=== PATIENT | female | born 1950 | race Caucasian/White ===

== ENCOUNTER 2019-04-18 23:49 | Emergency (ER) | payer OTHER ==
[2019-04-19 00:01] VITALS: BP 153/80; PULSE 73; TEMP 98.4; BMI 24.7
--- NOTE | 2019-04-19 00:25 | PDOC ---
History of Present Illness - General Chief Complaint: Irregular Heart Beat Stated Complaint: ARRYTHMIA Time Seen by Provider: 04/19/19 00:18 History Source: Patient Exam Limitations: No Limitations - History of Present Illness Initial Comments: 04/19/19 00:22 This is a 68-year-old female who comes in complaining of an arrhythmia. Patient said that she has had a viral upper respiratory tract type illness and has not been feeling that well for a few days. Patient said that this morning it felt like she was having extra beats. Patient denied any associated chest pain, nausea, vomiting, diarrhea, shortness of breath, abdominal pain or any other associated symptoms. Patient does appear to be a little anxious. Patient denies history of flulike symptoms in the past. Patient said it is different than her A. fib that she has had in the past. Allergies: as per nursing notes Past Medical History: none Social history: Lives with family. No smoking. No alcohol. No illicit drugs. Surgical history: None General: No fevers or chills, no weakness, no weight loss HEENT: No change in vision. No sore throat,. No ear pain CardioVascular: no chest discomfort. No shortness of breath Respiratory:No cough, or wheezing. Gastrointestinal: no nausea, vomiting, diarrhea or constipation, No rectal bleeding Genitourinary: No dysuria, hematuria, or frequency Musculoskeletal: No joint or muscle pain or swelling Neurologic: No headache, vertigo, dizziness or loss of consciousness Psychiatric: nor depression Skin: No rashes or easy bruising Endocrine: no increased thirst or abnormal weight change Allergic: no skin or latex allergy All other systems reviewed and normal Exam: General: Well-nourished well-developed individual, no acute distress HEENT: Throat: Normal, tonsils normal, no erythema or exudate Neck: Supple, no meningeal signs, no lymphadenopathy Eyes::Pupils equal reactive and round, extraocular motion intact Chest: Nontender to palpation Cardiac: S1-S2 normal, regular rate and rhythm, no murmurs rubs or gallops Respiratory: Lungs clear to auscultation bilateral Abdomen: Soft, nondistended, normal bowel sounds, there is no tenderness on palpation diffusely Extremities: Warm, dry, no cyanosis, clubbing, or edema Skin: No rashes Neuro: Alert and oriented x3, CN II - XII intact, nonfocal exam with normal strength, normal sensation, normal reflexes, normal gait, Psych: Normal mood and affect EKG shows normal sinus rhythm with a rate of [address]-T wave changes there is an occasional premature atrial complex. Patient most likely is feeling that premature atrial complexes as her skipped/extra beat. Patient discharged we will follow-up with her primary care doctor. Past History - Past Medical History Allergies/Adverse Reactions: Allergies Allergy/AdvReac Type Severity Reaction Status Date / Time No Known Allergies Allergy Unverified 07/10/12 22:07 Home Medications: Ambulatory Orders Levothyroxine [Synthroid] 0.88 mcg PO DAILY 07/10/12 Metoprolol Tartrate 25 mg PO DAILY 04/18/19 Simvastatin 20 mg PO DAILY 04/18/19 Warfarin Sodium [Coumadin] 5 mg PO DAILY 04/18/19 Cardiac Disorders: Yes (mitral regurgitation, AFIB) COPD: No Thyroid Disease: Yes Other medical history: ANKYLOSING SPONDYLITIS - Psycho Social/Smoking Cessation Hx Smoking Status: No Smoking History: Never smoked Number of Cigarettes Smoked Daily: 0 Hx Alcohol Use: Yes Substance Use Type: Alcohol *Physical Exam - Vital Signs Last Vital Signs Temp Pulse Resp BP Pulse Ox 98.4 F 73 16 153/80 99 04/18/19 23:55 04/18/19 23:55 04/18/19 23:55 04/18/19 23:55 04/18/19 23:55 Discharge - Discharge Information Problems reviewed: Yes Clinical Impression/Diagnosis: Palpitations Condition: Stable Disposition: HOME - Admission No - Follow up/Referral Referrals: Robbie Etienne [Primary Care Provider] - - Patient Discharge Instructions Additional Instructions: Return to the emergency department immediately with ANY new, persistent or worsening symptoms. Continue any medications as previously prescribed by your physician. You should follow up with your primary doctor as soon as possible regarding today's emergency department visit. . Please make sure your doctor reviews the results of your emergency evaluation. Thank you for coming to the Emergency Department today for your care. It was a pleasure to see you today. Please note that your evaluation is INCOMPLETE until you follow-up with your doctor. - Post Discharge Activity
--- NOTE | 2019-04-22 11:03 | EKG ---
Test Reason : Blood Pressure : / mmHG Vent. Rate : 065 BPM Atrial Rate : 065 BPM P-R Int : 206 ms QRS Dur : 086 ms QT Int : 418 ms P-R-T Axes : 046 -35 041 degrees QTc Int : 434 ms SINUS RHYTHM WITH PREMATURE ATRIAL COMPLEXES LEFT AXIS DEVIATION ABNORMAL ECG NO PREVIOUS ECGS AVAILABLE Confirmed by Chris Hahn MD ([id number]) on 04/22/2019 11:02:38 AM Referred By: MD SIERRA Confirmed By:Chris Hahn MD
== END 2019-04-19 00:28 | disposition home or self-care (01) ==
LOC: SUPCPDRO 23:49 → FER 23:49
DX: R00.2 Palpitations (principal); I48.91 Unspecified atrial fibrillation; I34.0 Nonrheumatic mitral (valve) insufficiency; E07.9 Disorder of thyroid, unspecified; M45.9 Ankylosing spondylitis of unspecified sites in spine
CPT/HCPCS: 93005; 99283-25

== ENCOUNTER 2020-01-17 01:11 | Emergency (ER) | payer OTHER ==
[2020-01-17 01:24] VITALS: BP 140/90; PULSE 95; TEMP 98.9; BMI 24.7
[2020-01-17] MEDS ORDERED: SODIUM CHLORIDE 500 ML IV STA (01:53)
[2020-01-17 02:42] LABS: BASO % 0.2 % (0-2.0); EOS % 1.7 % (0-4.5); HEMATOCRIT 37.8 % (32.4-45.2); HEMOGLOBIN 12.7 GM/dL (10.7-15.3); LYMPH % 46.2 % (8-40); MCH 31.3 pg (25.7-33.7); MCHC 33.6 g/dl (32.0-36.0); MEAN CELL VOLUME 93.3 fl (80-96); MEAN PLT VOLUME 8.5 fl (7.5-11.1); MONO % 8.2 % (3.8-10.2); NEUT % 43.7 % (42.8-82.8); PLATELET COUNT 195 K/MM3 (134-434); RBC 4.05 M/mm3 (3.60-5.2); RDW 14.1 % (11.6-15.6)
[2020-01-17 02:50] LABS: INR 2.48 (0.83-1.09); PROTHROMBIN TIME (PATIENT) 29.2 SEC (9.7-13.0)
[2020-01-17 02:53] LABS: CHLORIDE 103 mmol/L (98-107); POTASSIUM 3.8 mmol/L (3.5-5.1); SODIUM 137 mmol/L (136-145)
[2020-01-17 02:55] LABS: ALBUMIN 3.9 g/dl (3.4-5.0); ANION GAP 6 MMOL/L (8-16); BLOOD UREA NITROGEN 14.6 mg/dL (7-18); CALCIUM 9.1 mg/dL (8.5-10.1); CO2 28 mmol/L (21-32); GLUCOSE,RANDOM 98 mg/dL (74-106)
[2020-01-17 02:58] LABS: CREATININE 0.9 mg/dL (0.55-1.3); SGOT/AST 21 U/L (15-37); SGPT/ALT 22 U/L (13-61)
[2020-01-17 03:00] LABS: BILIRUBIN,TOTAL 0.4 mg/dL (0.2-1); TOT PROT 6.8 g/dl (6.4-8.2)
[2020-01-17 04:26] LABS: ALK PHOS 65 U/L (45-117)
== END 2020-01-17 03:34 | disposition home or self-care (01) ==
LOC: FER 01:11
PROC: 3E0337Z Introduction of Electrolytic and Water Balance Substance into Peripheral Vein, Percutaneous Approach (ICD-10-PCS; principal; 2020-01-17)
DX: I48.0 Paroxysmal atrial fibrillation (principal)
CPT/HCPCS: 36415; 80053; 82550; 84443; 84484; 85025; 85610; 93005; 99284-25

== ENCOUNTER 2020-08-12 21:13 | Emergency (ER) | payer OTHER ==
[2020-08-12 21:22] VITALS: BP 154/76; PULSE 67; TEMP 98.7; BMI 24.5
[2020-08-12 21:56] LABS: BASO % 1.7 % (0-2.0); EOS % 0.3 % (0-4.5); HEMATOCRIT 35.8 % (32.4-45.2); HEMOGLOBIN 12.1 GM/dl (10.7-15.3); LYMPH % 24.9 % (8-40); MCH 30.7 pg (25.7-33.7); MCHC 33.9 g/dl (32.0-36.0); MEAN CELL VOLUME 90.6 fl (80-96); MEAN PLT VOLUME 8.1 fl (7.5-11.1); MONO % 6.8 % (3.8-10.2); NEUT % 66.3 % (42.8-82.8); PLATELET COUNT 223 10^3/uL (134-434); RBC 3.95 M/mm3 (3.60-5.2); RDW 13.3 % (11.6-15.6); WHITE BLOOD COUNT 7.1 K/mm3 (4.0-10.8)
[2020-08-12 22:22] LABS: ALBUMIN 4.3 g/dl (3.4-5.0); BILIRUBIN,TOTAL 0.9 mg/dl (0.2-1); CALCIUM 8.8 mg/dl (8.5-10); CREATININE 0.8 mg/dl (0.55-1.3); TOT PROT 6.8 g/dl (6.4-8.2)
[2020-08-12 22:35] LABS: EPITHELIAL CELLS FEW /hpf
== END 2020-08-12 22:48 | disposition home or self-care (01) ==
LOC: FER 21:13
DX: R53.83 Other fatigue (principal)
CPT/HCPCS: 36415; 80053; 81003; 81015; 84443; 85025; 93005; 99283-25